=== PATIENT | female | born 1995 ===

== ENCOUNTER 2018-04-25 11:28 | Emergency (ER) | payer OTHER ==
[2018-04-25 11:47] VITALS: O2SAT 98
[2018-04-25] MEDS ORDERED: Sodium Chloride 0.9% 1,000 ML IV STA (13:10)
--- NOTE | 2018-04-25 13:32 | ED PDOC ---
HPI: Abdomen Time Seen by Provider: 04/25/18 11:59 Chief Complaint (Nursing): GI Problem Chief Complaint (Provider): GI Problem History Per: Patient History/Exam Limitations: no limitations Onset/Duration Of Symptoms: Days (3) Associated Symptoms: Nausea, Vomiting, Diarrhea. denies: Fever, Urinary Symptoms Exacerbating Factors: denies: Other (Travel, sick contact or recent antibiotics use) Additional Complaint(s): 22 years old female presents to the ED for evaluation of diarrhea onset 3 days. Patient reports experiencing nausea and 2 episodes of vomiting today. She also complains of joints pain and stiffness intermittently for few months. She denies any fever, abdominal pain, recent travel, sick contact, urinary symptoms or recent antibiotics use. Otherwise: (-) melena, (-) hematochezia. PMD: non provided Past Medical History Reviewed: Historical Data, Nursing Documentation, Vital Signs Vital Signs: Last Vital Signs Temp 97 F L 04/25/18 13:40 Pulse 78 04/25/18 13:40 Resp 19 04/25/18 13:40 BP 128/76 04/25/18 13:40 Pulse Ox 98 04/25/18 13:57 - Medical History PMH: No Chronic Diseases - Surgical History Surgical History: No Surg Hx - Family History Family History: States: Unknown Family Hx - Social History Current smoker - smoking cessation education provided: No Alcohol: None Drugs: Denies - Allergies Allergies/Adverse Reactions: Allergies Allergy/AdvReac Type Severity Reaction Status Date / Time shrimp Allergy Severe ANAPHYLAXIS Verified 04/25/18 11:49 Review of Systems ROS Statement: Except As Marked, All Systems Reviewed And Found Negative Constitutional: Negative for: Fever Gastrointestinal: Positive for: Nausea, Vomiting, Diarrhea. Negative for: Abdominal Pain Genitourinary Female: Negative for: Dysuria, Hematuria Physical Exam - Physical Exam Comments: GENERAL APPEARANCE: Patient is awake, alert, oriented x 3, in no acute distress. SKIN: Warm, dry; (-) cyanosis. EYES: (-) conjunctival pallor, (-) scleral icterus. ENMT: Mucous membranes moist. NECK: (-) tenderness, (-) stiffness, (-) lymphadenopathy. CHEST AND RESPIRATORY: (-) rales, (-) rhonchi, (-) wheezes; breath sounds equal bilaterally. HEART AND CARDIOVASCULAR: (-) irregularity; (-) murmur, (-) gallop. ABDOMEN AND GI: (-) distention. Bowel sounds active; [-] tenderness. (-) guarding, (-) rebound, (-) palpable masses, (-) CVA tenderness. EXTREMITIES: (-) deformity, (-) edema, (+) distal pulses. NEURO AND PSYCH: Mental status as above; (-) focal findings. - ECG O2 Sat by Pulse Oximetry: 98 (RA) Pulse Ox Interpretation: Normal Medical Decision Making Medical Decision Making: Plan: -- Labs -- IV fluids -- Urinalysis -- Zofran IV -- Reassess and disposition Labs, IV, IV Zofran ordered however the patient is refusing all diagnostic test and treatments being offered to her at this time. Patient states that she would rather go to her doctor this afternoon to have a blood test performed at her doctor's office, states that she was able to obtain an appointment at 2:00pm. She no longer wants labs IV or any medications. Patient refuses further care, evaluation or treatment in the ER. Patient informed of the reasons for the following and planned treatment, which patient understands, however still refuses. Patient informed of the risk and benefits of treatment. Informed that the risk could include worsening of current conditions, undiagnosed conditions, disability or even . Patient understands the following risk and the benefits of treatment. Patient has the capacity to make decisions and still refuses treatment by RN, PA and ER MD. Patient encouraged to return to the ER at any time and to follow up with pmd. Disposition - Clinical Impression Clinical Impression: Vomiting and diarrhea - Patient ED Disposition Is Patient to be Admitted: No Counseled Patient/Family Regarding: Diagnosis, Need For Followup - Disposition Disposition: Against Medical Advice Disposition Time: 13:30 Condition: STABLE Additional Instructions: Thank you for letting us take care of you today. Your choosing to leave AGAINST MEDICAL ADVICE. You were treated for vomiting and diarrhea. The emergency medical care you received today was directed at your acute symptoms. Drink plenty of fluids, brat diet. It may take several days for your symptoms to resolve. Return to the Emergency Department if your symptoms worsen, do not improve, or if you have any other problems. Please see your doctor today as scheduled. Bring any paperwork you were given at discharge with you along with any medications you are taking to your follow up visit. Our treatment cannot replace ongoing medical care by a primary care provider (PCP) outside of the emergency department. Thank you for allowing the [facility] team to be part of your care today. Instructions: Viral Gastroenteritis, Nausea and Vomiting, Adult (DC), Leaving Against Medical Advice Forms: [facility] ([place])
[2018-04-25 13:58] VITALS: BP 128/76; PULSE 78; RESP 19; TEMP 97
== END 2018-04-25 13:56 | disposition left against medical advice (07) ==
LOC: H.ER 11:28
DX: R11.10 Vomiting, unspecified (principal); R19.7 Diarrhea, unspecified